=== PATIENT | female | born 1985 | race Caucasian/White ===

== ENCOUNTER 2020-12-07 08:16 | Outpatient (CLI) | payer OTHER, SELFPAY ==
[2020-12-07] VITALS (8 sets, daily range): BP systolic 107–117; BP diastolic 69–80; PULSE 69–81; RESP 16; TEMP 36.6
[2020-12-07 08:47] LABS: Basophils Percent Auto 0.6 % (0.2-1.2); Eosinophils Absolute Auto 0.1 K/mm3 (0-0.3); Eosinophils Percent Auto 0.9 % (0-4.4); Hematocrit 28.4 % (37.0-47.0); Hemoglobin 9.5 g/dL (12.0-15.0); Immature Granulocyte Absolute 0.06 K/mm3 (0.00-0.031); Immature Granulocyte Percent A 0.9 % (0-0.5); Lymphocytes Absolute Auto 1.95 K/mm3 (0.9-3.2); Lymphocytes Percent Auto 28.1 % (18.3-44.2); Mean Corpuscular HGB Conc 33.5 g/dl (32-36); Mean Corpuscular Hemoglobin 28.8 pg (26-34); Mean Corpuscular Volume 86.1 fl (80-100); Mean Platelet Volume 10.6 fl (7.4-10.4); Monocytes Absolute Auto 0.5 K/mm3 (0.1-0.6); Monocytes Percent Auto 6.6 % (2.6-8.5); Neutrophils Absolute Auto 4.4 K/mm3 (1.3-6.7); Neutrophils Percent Auto 62.9 % (45.5-73.1); Platelet Count Result 231 k/mm3 (150-375); Red Cell Distribution Width 13.5 % (11.5-14.5); White Blood Count 6.9 K/mm3 (4.5-10.0)
[2020-12-07 09:08] LABS: Alanine Aminotransferase 9 U/L (4-35); Albumin Level 3.2 g/dL (3.5-5.1); Alkaline Phosphatase 218 U/L (38-126); Anion Gap 7 mmol/L (8-16); Aspartate Amino Transferase 21 U/L (14-36); Bilirubin,Total 0.4 mg/dL (0.2-1.3); Blood Urea Nitrogen 4 mg/dL (7-17); Calcium 8.8 mg/dL (8.4-10.2); Carbon Dioxide 20 mmol/L (22-30); Chloride 110 mmol/L (98-107); Estimated Glomerular Filt Rate > 60; Glucose 73 mg/dL (65-105); Potassium 3.2 mmol/L (3.4-5.0); Sodium 137 mmol/L (137-145); Uric Acid 3.3 mg/dL (2.5-7.5)
[2020-12-07 09:14] LABS: Creatinine Urine 64.7 mg/dL; Total Protein Urine Random 30 mg/dL; Ur Ttl Prot Creatinine Ratio 0.46 mg/mg (0-0.20)
[2020-12-07 09:51] LABS: Add Urine Microscopic? YES; Appearance Urine Clear (Clear); Bacteria Urine 1+ /hpf; Bilirubin Urine Negative (Negative); Blood Urine Negative (Negative); Color Urine Yellow (Yellow); Glucose Urine UA Negative (Negative); Ketones Urine Negative (Negative); Leukocyte Esterase Ur Trace LEU/UL (NEGATIVE); Mucus Urine Rare /lpf; Nitrate Urine Negative (Negative); Protein Urine Negative (Negative); RBC Urine 0-2 /hpf (0-2); Specific Grav Ur 1.009 (1.001-1.035); Squamous Epithelial Cell Urine Few /hpf (Few); Urobilinogen Urine Negative mg/dL (<2.0)
--- NOTE | 2020-12-09 07:58 | PM.OBTRLD ---
OB - Triage/Final Diagnosis Visit Information Date of evaluation: 12/07/20 Reason for evaluation: other (rule out preeclampsia ) Comments/Additional reasons for admission: I have assessed the risk for this patient, Maricruz Munoz, and determined that she would benefit from observation care. Evaluation Laboratory results: Laboratory Tests 12/07/20 12/07/20 12/07/20 08:41 08:41 08:50 WBC 6.9 RBC 3.30 L Hgb 9.5 L Hct 28.4 L MCV 86.1 MCH 28.8 MCHC 33.5 RDW 13.5 Plt Count 231 MPV 10.6 H Immature Gran % (Auto) 0.9 H Neut % (Auto) 62.9 Lymph % (Auto) 28.1 [place] % (Auto) 6.6 Eos % (Auto) 0.9 Baso % (Auto) 0.6 Lymph # (Auto) 1.95 [place] # (Auto) 0.5 Eos # (Auto) 0.1 Baso # (Auto) 0.0 Abs Immat Gran (auto) 0.06 H Absolute Neuts (auto) 4.4 Absolute Nucleated RBC 0.0 Nucleated RBC % 0.0 Sodium 137 Potassium 3.2 L Chloride 110 H Carbon Dioxide 20 L Anion Gap 7 L BUN 4 L Creatinine 0.60 L Estim Creat Clear Calc Not Reportable Estimated GFR > 60 Glucose 73 Uric Acid 3.3 Calcium 8.8 Total Bilirubin 0.4 AST 21 ALT 9 Alkaline Phosphatase 218 H Total Protein 6.0 L Albumin 3.2 L Urine Color Yellow Urine Appearance Clear Urine pH 7.0 Ur Specific [place] 1.009 Urine Protein Negative Urine Glucose (UA) Negative Urine Ketones Negative Ur Blood (Man) Negative Urine Nitrate Negative Urine Bilirubin Negative Urine Urobilinogen Negative Ur Leukocyte Esterase Trace H Urine RBC 0-2 Urine WBC 4-6 H Ur Squamous Epith Cells Few Urine Bacteria 1+ H Urine Mucus Rare U Random Total Protein Urine Creatinine Protein/Creat Ratio 2 12/07/20 08:50 WBC RBC Hgb Hct MCV MCH MCHC RDW Plt Count MPV Immature Gran % (Auto) Neut % (Auto) Lymph % (Auto) [place] % (Auto) Eos % (Auto) Baso % (Auto) Lymph # (Auto) [place] # (Auto) Eos # (Auto) Baso # (Auto) Abs Immat Gran (auto) Absolute Neuts (auto) Absolute Nucleated RBC Nucleated RBC % Sodium Potassium Chloride Carbon Dioxide Anion Gap BUN Creatinine Estim Creat Clear Calc Estimated GFR Glucose Uric Acid Calcium Total Bilirubin AST ALT Alkaline Phosphatase Total Protein Albumin Urine Color Urine Appearance Urine pH Ur Specific [place] Urine Protein Urine Glucose (UA) Urine Ketones Ur Blood (Man) Urine Nitrate Urine Bilirubin Urine Urobilinogen Ur Leukocyte Esterase Urine RBC Urine WBC Ur Squamous Epith Cells Urine Bacteria Urine Mucus U Random Total Protein 30 Urine Creatinine 64.7 Protein/Creat Ratio 2 0.46 H
== END 2020-12-07 09:40 | disposition home or self-care (01) ==
LOC: ANHOBOP 08:20 → ANHOBPP 08:21
PROVIDERS: Student in an Organized Health Care Education/Training Program; Visit Provider Obstetrics & Gynecology
DX: O13.3 Gestational [pregnancy-induced] hypertension without significant proteinuria, third trimester (principal); Z3A.00 Weeks of gestation of pregnancy not specified
CPT/HCPCS: 36415; 59025; 80053; 81001; 82570; 84156; 84550; 85025; 87086; 99199

== ENCOUNTER 2020-12-08 11:49 | Outpatient (NON) | payer OTHER, SELFPAY ==
[2020-12-08 12:04] VITALS: BMI 27.2
[2020-12-08 12:18] LABS: Collection Time Urine 24 HOURS
[2020-12-08 12:23] LABS: Total Volume 24 Hour Urine 2600 ml
[2020-12-08 12:24] LABS: Patient Weight 168 Lbs
[2020-12-08 12:40] LABS: Creatinine Urine 43.4 mg/dL
[2020-12-08 12:41] LABS: Creatinine Clearance Urine 122.1 ml/min (75-125)
[2020-12-08 16:52] LABS: Total Protein Urine 24 Hr 598 mg/24hr (0-149)
== END 2020-12-08 11:50 ==
LOC: ANHOBOP 11:50
PROVIDERS: Visit Provider Student in an Organized Health Care Education/Training Program
DX: O13.3 Gestational [pregnancy-induced] hypertension without significant proteinuria, third trimester (principal); Z3A.38 38 weeks gestation of pregnancy
CPT/HCPCS: 81050; 82575; 84156

== ENCOUNTER 2020-12-10 05:07 | Inpatient (IN) | payer OTHER, SELFPAY ==
[2020-12-10] VITALS (35 sets, daily range): BP systolic 105–138; BP diastolic 56–95; PULSE 61–98; RESP 16; TEMP 36.6–37.5; O2SAT 97–98; BMI 26.3
--- NOTE | 2020-12-10 05:07 | LDADM ---
This patient, Maricruz Munoz, was admitted to Labor/Delivery/Recovery 104 on 12/10/20 at 05:07. Plans for labor, pain management and were discussed with patient. Patient/family oriented to hospital policies and general routines including ID bracelet, bed and alarms, visiting hours, pain management, procedures, bathroom and other care routines, personal items, smoking policy, room service/diet and guest tray routines, security routines, and visiting hours. Patient/Family are encouraged to report perceived risks to care and to ask questions if they do not understand what they are told or what they should do. See OBIX for further documentation.
[2020-12-10 05:41] LABS: Basophils Percent Auto 0.5 % (0.2-1.2); Eosinophils Absolute Auto 0.1 K/mm3 (0-0.3); Hematocrit 30.1 % (37.0-47.0); Hemoglobin 10.1 g/dL (12.0-15.0); Immature Granulocyte Absolute 0.05 K/mm3 (0.00-0.031); Immature Granulocyte Percent A 0.7 % (0-0.5); Lymphocytes Absolute Auto 2.19 K/mm3 (0.9-3.2); Lymphocytes Percent Auto 28.7 % (18.3-44.2); Mean Corpuscular HGB Conc 33.6 g/dl (32-36); Mean Corpuscular Hemoglobin 29.3 pg (26-34); Mean Corpuscular Volume 87.2 fl (80-100); Mean Platelet Volume 10.8 fl (7.4-10.4); Monocytes Absolute Auto 0.5 K/mm3 (0.1-0.6); Monocytes Percent Auto 6.6 % (2.6-8.5); Neutrophils Absolute Auto 4.8 K/mm3 (1.3-6.7); Neutrophils Percent Auto 62.5 % (45.5-73.1); Platelet Count Result 254 k/mm3 (150-375); Red Blood Count 3.45 M/mm3 (4.2-5.4); White Blood Count 7.6 K/mm3 (4.5-10.0)
[2020-12-10] MEDS: LACTATED RINGERS 1,000 ML 125 ML IV CONT ×2 (05:51→10:50)
[2020-12-10] MEDS: OXYTOCIN 30 UNITS/NS 500 ML 30 UNITS/500 ML BAG 125 UNITS IV CONT ×2 (05:51→13:29)
[2020-12-10] MEDS: OXYTOCIN 30 UNITS/NS 500 ML 30 UNITS/500 ML BAG IV CONT (06:00)
--- NOTE | 2020-12-10 06:07 | P.HP_ITS ---
H&P: HPI History of Present Illness Date/Time: 12/10/20 06:07 Chief Complaint: iol Narrative: Maricruz Munoz is a 35 year old female 012 whose last menstrual period was 03/18/2020, EDC 12/23/2020, confirmed b y 9 week ultrasound presents at 38 weeks gestation for induction of labor. She has an elevated protein creatinine ratio with elevated pressures. She also was complaining of headache. Her period has been unremarkable prior Review of Systems Review of Systems: All systems reviewed & are unremarkable except as noted in HPI and below PMFSH Family History Family History Grandparent Hearing loss in Bone cancer Liver cancer Hypertension Sibling Multiple sclerosis Crohn's disease Mother Breast cancer in female Father Hypertension Social History Social History Smoking status: Never smoker Substance use: never Spiritual care concerns: No Meds Home Medications and Allergies Home Medications Medication Instructions Recorded Confirmed Type vit no.[id number] 1 tablet PO DAILY 12/10/20 12/10/20 History [Classic ] Allergies Allergy/AdvReac Type Severity Reaction Status Date / Time No Known Allergies Allergy Unknown Verified 12/02/20 12:42 Vital Signs Vital Signs - 24 hr 12/10/20 05:23 12/10/20 05:46 12/10/20 06:01 Pulse Rate 93 86 84 Blood Pressure 128/81 118/80 117/85 Exam Const: General: no acute distress Eyes: General: appearance normal, both eyes and all related structures Neck: Neck: supple and no JVD Thyroid: thyroid normal Resp: Effort & Inspection: normal respiratory effort Auscultation: clear to auscultation bilaterally Cardio: Rate: regular rate Rhythm: regular rhythm GI: Inspection: non-distended GI Palp: Yes Soft to palpation, No Tenderness to palpation present (GI) and No Guarding due to palpation present (GI) Auscultation: normal bowel sounds : Speculum Exam - Vagina: normal appearance of the vagina Speculum Exam - Cervix: Cervical os closed (cx 2/50/-1. arom clear. fhts reassuring) Skin: General skin exam: no rashes or lesions noted Extrem: General: normal to inspection and no edema Psych: Mental Status: mental status grossly normal Affect: normal affect H&P: Results Labs Labs: Short CBC 12/10/20 Range/Units 05:35 WBC 7.6 (4.5-10.0) K/mm3 Hgb 10.1 L (12.0-15.0) g/dL Hct 30.1 L (37.0-47.0) % Plt Count 254 (150-375) k/mm3 Assessment and Plan Additional Plan impression: 38 week with gestational hypertension Plan: Medical induction of labor. Spontaneous vaginal delivery is expected she is an epidural candidate if she chooses
[2020-12-10 06:34] LABS: Rapid Plasma Reagin Non-Reactive (NonReactive)
--- NOTE | 2020-12-10 10:33 | WPDANESEPP ---
Anes - Eval Pre Procedure Procedure: labor epidural Date/Time: 12/10/20 10:33 Pre Op Diagnosis: Induction Patient Data Age: 35 Gender: F Height: 5 ft 6 in Weight: 74 kg Last Vital Signs Temp 36.7 C 12/10/20 08:00 Pulse 61 12/10/20 10:16 BP 113/70 12/10/20 10:16 Allergies Allergy/AdvReac Type Severity Reaction Status Date / Time No Known Allergies Allergy Unknown Verified 12/10/20 06:26 Home Medications Medication Instructions Recorded Confirmed Type vit no.[id number] 1 tablet PO DAILY 12/10/20 12/10/20 History [Classic ] Laboratory Tests 12/10/20 12/10/20 12/10/20 05:35 05:35 05:35 WBC 7.6 K/mm3 K/mm3 (4.5-10.0) RBC 3.45 M/mm3 L M/mm3 (4.2-5.4) Hgb 10.1 g/dL L g/dL (12.0-15.0) Hct 30.1 % L % (37.0-47.0) MCV 87.2 fl fl (80-100) MCH 29.3 pg pg (26-34) MCHC 33.6 g/dl g/dl (32-36) RDW 14.0 % % (11.5-14.5) Plt Count 254 k/mm3 k/mm3 (150-375) MPV 10.8 fl H fl (7.4-10.4) Immature Gran % (Auto) 0.7 % H % (0-0.5) Neut % (Auto) 62.5 % % (45.5-73.1) Lymph % (Auto) 28.7 % % (18.3-44.2) [place] % (Auto) 6.6 % % (2.6-8.5) Eos % (Auto) 1.0 % % (0-4.4) Baso % (Auto) 0.5 % % (0.2-1.2) Lymph # (Auto) 2.19 K/mm3 K/mm3 (0.9-3.2) [place] # (Auto) 0.5 K/mm3 K/mm3 (0.1-0.6) Eos # (Auto) 0.1 K/mm3 K/mm3 (0-0.3) Baso # (Auto) 0.0 K/mm3 K/mm3 (0.0-0.1) Abs Immat Gran (auto) 0.05 K/mm3 H K/mm3 (0.00-0.031) Absolute Neuts (auto) 4.8 K/mm3 K/mm3 (1.3-6.7) Absolute Nucleated RBC 0.0 K/mm3 K/mm3 (0.0-0.012) Nucleated RBC % 0.0 % % (0.0-0.2) RPR Non-reactive (NonReactive) Blood Type O Positive Antibody Screen Negative Patient hx anesthesia problems: none Family hx anesthesia problems: none PMFSH Family History Family History Grandparent Hearing loss in Bone cancer Liver cancer Hypertension Sibling Multiple sclerosis Crohn's disease Mother Breast cancer in female Father Hypertension Social History Social History Smoking status: Never smoker Substance use: never Spiritual care concerns: No Exam Day of Procedure 12/10/20 10:33 Patient weight: normal Heart: regular rate and rhythm Lungs: clear to auscultation and normal air movement Neurological: alert and oriented
--- NOTE | 2020-12-10 11:42 | P.PNOB_ITS ---
OB - PN: Subj Subjective Date/time seen: 12/10/20 11:42 cx 4cm by rn exam fhts reassuring OB - PN: Obj Data Labs CBC & Chem 7: 12/10/20 05:35 Labs: Laboratory Results - last 24 hr 12/10/20 12/10/20 12/10/20 05:35 05:35 05:35 WBC 7.6 RBC 3.45 L Hgb 10.1 L Hct 30.1 L MCV 87.2 MCH 29.3 MCHC 33.6 RDW 14.0 Plt Count 254 MPV 10.8 H Immature Gran % (Auto) 0.7 H Neut % (Auto) 62.5 Lymph % (Auto) 28.7 [place] % (Auto) 6.6 Eos % (Auto) 1.0 Baso % (Auto) 0.5 Lymph # (Auto) 2.19 [place] # (Auto) 0.5 Eos # (Auto) 0.1 Baso # (Auto) 0.0 Abs Immat Gran (auto) 0.05 H Absolute Neuts (auto) 4.8 Absolute Nucleated RBC 0.0 Nucleated RBC % 0.0 RPR Non-reactive Blood Type O Positive Antibody Screen Negative OB - PN A/P Time Spent With Patient Time: Total time spent is greater than 50% in coordination of care (as documented) at patient's floor/unit and/or counseling patient:
[2020-12-10] MEDS: fentaNYL CITRATE INJ (*CRX) 100 MCG/2 ML VIAL IV PUSH (12:21)
[2020-12-10] MEDS: BENZOCAINE 20% AER SPR (*SP) 56 GM CAN 1 SPRAY TOPICAL (15:11)
[2020-12-10] MEDS: WITCH HAZEL 40 PADS 1 PAD TOPICAL (15:11)
--- NOTE | 2020-12-10 15:25 | PC.NURSE ---
Patient transferred to post room #290 via wheelchair. Support person present. Oriented to unit, room, information board, rooming in, admission packet and security measures. Patient verbalizes understanding.
[2020-12-10] MEDS: IBUPROFEN 600 MG TABLET PO (17:55)
[2020-12-10] MEDS: LANOLIN (LANSINOH) 7.5 GM CREAM 1 APPLIC TOPICAL (17:56)
[2020-12-11] VITALS: BP 100/69; PULSE 62; RESP 16; TEMP 36.6; O2SAT 97
[2020-12-11] MEDS: IBUPROFEN 600 MG TABLET PO ×2 (00:32→10:14)
[2020-12-11 04:00] VITALS: BP 98/60; PULSE 71; RESP 16; TEMP 36.6; O2SAT 97
[2020-12-11 05:11] LABS: Hematocrit 23.6 % (37.0-47.0)
--- NOTE | 2020-12-11 07:41 | PM.DS ---
DS: Admitting Diagnosis Admitting Diagnosis Admitting Diagnosis: term iup gest htn DS: Summary Hospital Course Hospital Course: Patient was admitted for induction of labor secondary to elevated blood pressure. She underwent spontaneous vaginal delivery which was unremarkable. Her hospital course was unremarkable. Her blood pressures remained stable. Time Spent with Patient Time attestation: Total time spent providing and/or coordinating discharge services: Exam Const: General: no acute distress Eyes: General: appearance normal, both eyes and all related structures Neck: Neck: supple and no JVD Thyroid: thyroid normal Resp: Effort & Inspection: normal respiratory effort Auscultation: clear to auscultation bilaterally Cardio: Rate: regular rate Rhythm: regular rhythm GI: Inspection: non-distended GI Palp: Yes Soft to palpation, No Tenderness to palpation present (GI) and No Guarding due to palpation present (GI) Auscultation: normal bowel sounds : General: Yes bladder normal to palpation External Female Exam: normal external appearance Speculum Exam - Vagina: normal vaginal discharge and No vaginal bleeding Speculum Exam - Cervix: nontender Bimanual exam- vagina & uterus: bladder normal to palpation and No Cervical tenderness present OB/external & speculum: No vaginal bleeding Skin: General skin exam: no rashes or lesions noted Extrem: General: normal to inspection and no edema Psych: Mental Status: mental status grossly normal Affect: normal affect DS: Data Data Completed and Pending Labs on day of discharge: Labs from last 24 hours 12/11/20 12/10/20 03:52 05:35 Hgb 8.0 L Hct 23.6 L Blood Type O Positive Antibody Screen Negative Discharge Plan Discharge Attending physician on discharge: Kayode Brown Discharging Clinician: Kayode Brown Patient Disposition: Home, Self-Care Activity: no straining and pelvic rest Diet: heart healthy Wound Care Instructions: follow printed instructions Patient Instructions: Antibiotic Form Stand Alone Forms: General Discharge Information Follow-up/Referrals: Kayode Brown MD [Physician] - Discharge Medications: Continued Classic 28 mg iron- 800 mcg Tablet 1 tablet PO DAILY RF: 0 Date of admission: 12/10/20 05:07 Primary Care Provider: PHYSICIAN,DIALYSIS CLINICAL MANAGER Admitting Provider: Kayode Brown Attending physician on admission: Kayode Brown Condition: Stable
--- NOTE | 2020-12-11 07:45 | PM.OBPNVD ---
OB - PN: Subj Subjective Date/time seen: 12/11/20 07:45 OB - PN: Obj Data Labs CBC & Chem 7: 12/11/20 03:52 Labs: Laboratory Results - last 24 hr 12/10/20 12/11/20 05:35 03:52 Hgb 8.0 L Hct 23.6 L Blood Type O Positive Antibody Screen Negative OB - PN A/P Plan day: 1 Plan: routine care, discharge home and follow up 6 weeks Time Spent With Patient Time: Total time spent is greater than 50% in coordination of care (as documented) at patient's floor/unit and/or counseling patient: Time with patient: less than 15 minutes Review of Systems Review of Systems: All systems reviewed & are unremarkable except as noted in HPI and below Exam Const: General: no acute distress Eyes: General: appearance normal, both eyes and all related structures Neck: Neck: supple and no JVD Thyroid: thyroid normal Resp: Effort & Inspection: normal respiratory effort Auscultation: clear to auscultation bilaterally Cardio: Rate: regular rate Rhythm: regular rhythm GI: Inspection: non-distended GI Palp: Yes Soft to palpation, No Tenderness to palpation present (GI) and No Guarding due to palpation present (GI) Auscultation: normal bowel sounds : General: Yes bladder normal to palpation External Female Exam: normal external appearance Speculum Exam - Vagina: normal vaginal discharge and No vaginal bleeding Speculum Exam - Cervix: nontender Bimanual exam- vagina & uterus: bladder normal to palpation and No Cervical tenderness present OB/external & speculum: No vaginal bleeding Skin: General skin exam: no rashes or lesions noted Extrem: General: normal to inspection and no edema Psych: Mental Status: mental status grossly normal Affect: normal affect
[2020-12-11 07:55] VITALS: BP 116/68; PULSE 74; RESP 18; TEMP 36.8; O2SAT 99
--- NOTE | 2020-12-11 08:50 | PC.NURSE ---
Mother called out for assist with feeding. Consulted with patient, mother nipple discomfort with latch during most of the feeding. Both nipples are reddened, nipple care reviewed and lanolin provided. Mother reports she has breastfed two other children. Reviewed infant feeding cues, frequencies, duration of feedings, feeding elimination flow sheet, and signs of adequate intake. Demonstrated stimulation techniques to wake infant for feeding. Assisted with to breast. Reviewed positioning/alignment in cross cradle, holding breast in U hold and guided asymmetrical latch on. Infant was able to latch correctly within a few attempts. nursed eagerly, with steady draws and frequent swallowing noted. Reviewed signs of a correct latch, effective nursing and suck swallow ratio. was able to maintain latch. Mother reported tenderness at times, infant had slipped to shallow latch. Demonstrated how to adjust latch more deeply while feeding. Mother quickly reports she can feel is latched more deeply and has minimal tenderness. Suggested to stimulate infant while feeding to keep awake and nursing effectively for increased stimulation and increased intake. Instructed mother to call out for RN assistance if she is unable to latch infant for feeding or she has discomfort with nursing. Instructed feeding should be initiated three hours from start of last feeding or if feeding cues are noted before. Mother voiced understanding of information shared. Mother wishes for 24 hour discharge. Mother is feeding as required and waking to feed if needed. Infant has had several feedings as required since , and is currently meeting outcomes for weight, output, jaundice and feeding frequencies. Mother states she feels confident to continue effective at home. Reviewed transition to breast milk, signs of adequate intake, and engorgement/relief. Instructed to call ICP if intake/output less than required. Reviewed regular medications mother is taking. Information provided per Berenice. Reviewed community resources on the [facility] website and in the [employer] guide. Information on outpatient services provided. Mother has no further questions at this time.
[2020-12-11 10:00] VITALS: PULSE 74; RESP 18; O2SAT 99
[2020-12-11] MEDS: ACETAMINOPHEN 325 MG TABLET 650 MG PO (10:04)
[2020-12-11] MEDS: DOCUSATE SODIUM 100 MG CAPSULE PO (10:04)
[2020-12-11] MEDS: MULTIVIT/MIN/PREN/FOL AC/IRON TABLET 1 TAB PO (10:15)
[2020-12-11] MEDS: POLYSACCHARIDE IRON COMPLEX 150 MG CAPSULE PO (10:15)
[2020-12-11] MEDS: LANOLIN (LANSINOH) 7.5 GM CREAM 1 APPLIC TOPICAL (10:17)
--- NOTE | 2020-12-11 11:51 | PC.NURSE ---
Addendum entered by Deangelo Erwin RN 12/11/20 11:52: actual time is 0800 Original Note: PT introductions made and plan of care discussed per post , pain management, breast feeding daily care activities and pending discharge to home PT verbalized understanding of such care.
[2020-12-11 12:15] VITALS: BP 122/75; PULSE 77; RESP 18; TEMP 37.2; O2SAT 97
--- NOTE | 2020-12-11 13:15 | PC.NURSE ---
PT received discharge instructions per protocol verbally and without any barriers to understanding. PT verbalized understanding of such instructions.
--- NOTE | 2020-12-11 13:40 | PC.NURSE ---
Pt discharged to home ambulatory accompanied by spouse and to waiting car. Follow up appts confirmed
[2020-12-12 10:38] VITALS: BP 97/74; PULSE 62; RESP 20; TEMP 37.1; O2SAT 100
--- NOTE | 2020-12-12 10:38 | PM.OBPRVD ---
OB - Delivery Note Procedure events: Pre-Eclampsia Induction method: AROM Delivery augmentation: pitocin Delivery monitor: external FHT Route of delivery: Episiotomy description: None Laceration Description: Perineal - 2nd Degree Delivery repair: vicryl Specimen: No Quantitative Blood Loss (ml): 158 Anesthesia type: Local Disposition: floor [place] Baby Weeks of gestation at delivery: 38 gender: Female presentation: vertex position: Right Occiput Anterior Placenta delivery description: Spontaneous cord vessel description: 3 Vessels
== END 2020-12-11 13:40 | disposition home or self-care (01) | DRG 807 ==
LOC: ANHLDR 05:11 → ANHOB2 15:37
PROVIDERS: Admitting Provider Obstetrics & Gynecology; Visit Provider Obstetrics & Gynecology
DX: O13.4 Gestational [pregnancy-induced] hypertension without significant proteinuria, complicating childbirth (principal); Z37.0 Single live birth; O70.1 Second degree perineal laceration during delivery; O69.81X0 Labor and delivery complicated by cord around neck, without compression, not applicable or unspecified; O76 Abnormality in fetal heart rate and rhythm complicating labor and delivery; Z3A.38 38 weeks gestation of pregnancy
CPT/HCPCS: 36415; 85014; 85018; 85025; 86592; 86850; 86900; 86901; A9270; J2590; J2795; J3010; J7120

== ENCOUNTER 2023-06-26 11:09 | Emergency (ER) | payer OTHER, SELFPAY ==
--- NOTE | 2023-06-26 11:14 | ED.URI ---
HPI - URI/Sore Throat General Chief Complaint: Upper Respiratory Infection Stated Complaint: sore throat Time Seen by Provider: 06/26/23 11:14 Source: patient Mode of arrival: ambulatory Limitations: no limitations History of Present Illness HPI Narrative: Serjio is a 38-year-old female patient presenting to clinic today with complaints of a sore throat 2-3 days. She reports no other symptoms. No known fever or chills. States her 3 children also are reporting sore throats and are being evaluated in the clinic today. She would like them to be checked for strep. MD elicited complaint: sore throat Related Data Home Medications Medication Instructions Recorded Confirmed No Home Medications 06/26/23 06/26/23 Allergies Allergy/AdvReac Type Severity Reaction Status Date / Time No Known Allergies Allergy Unknown Verified 06/26/23 11:40 Review of Systems Review of Systems: Pertinent positives per HPI. Patient denies any fever, chills, rash, headache, visual changes, dizziness, cough, shortness of breath, chest pain, palpitations, nausea, vomiting, diarrhea, constipation, abdominal pain, or any urinary issues. PMFSH Family History Family History Grandparent Hearing loss in Bone cancer Liver cancer Hypertension Sibling Multiple sclerosis Crohn's disease Mother Breast cancer in female Father Hypertension Social History Social History Smoking status: Never smoker Substance use: never Spiritual care concerns: No Comments At the time of my signature, I reviewed and agree with the nursing past medical, surgical, social, and family history. There is no relevant family history pertinent to the patient complaint. Exam Narrative: General: Well-developed, well nourished, in no apparent distress Head: Normocephalic, atraumatic Eyes: Pupils equally round and reactive to light bilaterally, EOM intact, sclera and conjunctive clear, no discharge, lids normal Ears: TMs intact and clear, ear canals clear, no drainage, grossly hearing normal. Nose: Nares patent, no discharge, no inflammation, no sinus tenderness. Mouth: Oral pharynx mild red without lesions or masses, good dentition, MMM. Neck: Supple, trachea midline, no enlargement of anterior or posterior cervical nodes, no thyroid masses or goiter palpable. Cardio: Regular rate and rhythm, s1 and s2 normal, no murmur appreciated. Resp: Clear to auscultation bilaterally, no rhonchi, rales, wheezing or rubs Course Course Emergency Course: Portions of this record may have been created with voice recognition software. Level of Care: Express Care Visit Vital Signs Vital signs: Vital Signs Temperature 36.7 C 06/26/23 11:29 Pulse Rate 71 06/26/23 11:29 Respiratory Rate 18 06/26/23 11:29 Blood Pressure 117/74 06/26/23 11:29 Pulse Oximetry 98 06/26/23 11:29 Oxygen Delivery Room Air 06/26/23 11:29 Temperature 36.7 C 06/26/23 11:29 Pulse Rate 71 06/26/23 11:29 Respiratory Rate 18 06/26/23 11:29 Blood Pressure 117/74 06/26/23 11:29 Pulse Oximetry 98 06/26/23 11:29 Oxygen Delivery Room Air 06/26/23 11:29 Vital signs reviewed MDM - URI/Sore Throat MDM Narrative Medical decision making narrative: At the time of visit patient is resting comfortably on the exam table. All her children were negative for strep in the clinic today so mother opted not to be swab. I suspect she has viral pharyngitis. Supportive measures were discussed with mother and she voiced understanding of the discharge instructions agrees to treatment plan. Differential Diagnosis Differential diagnosis: Likely upper respiratory infection, otitis media, sinusitis, viral infection, bronchitis, influenza, pharyngitis and other (COVID) Discharge Plan Discharge Clinical Impression: Acute viral pharyngitis
[2023-06-26 11:29] VITALS: BP 117/74; PULSE 71; RESP 18; TEMP 36.7; O2SAT 98
== END 2023-06-26 12:00 | disposition home or self-care (01) ==
PROVIDERS: Emergency Provider Nurse Practitioner Family
DX: J02.9 Acute pharyngitis, unspecified (principal)
CPT/HCPCS: 99211; G0463

== ENCOUNTER 2025-05-11 17:22 | Emergency (ER) | payer OTHER, SELFPAY ==
--- OUTSIDE RECORDS SUMMARY | 2025-05-11 17:36 | XMS_ITS | Referral Summary ---
Author Organization [facility] Address [address] [place] [address] Care Team Providers Care Cardiology Consultants Name Role Phone Dorina Mack DO Unavailable [phone] Maegan Hay MD Unavailable [phone] Maegan Hay MD Primary Care Provider [phone] Allergies No known active allergies Medications multivitamin capsule Take 1 capsule by mouth daily ELVA DHA VITAMINS Active drospirenone-et hinyl estradioL (STEPHANIE PATIÑO) 3-0.02 mg per tablet Take 1 tablet by mouth daily Active Active Problems Problem Noted Date Diagnosed Date Abnormal mammogram 12/27/2024 Family history of breast cancer 01/27/2023 Screening mammogram for breast cancer 01/27/2023 Encounter for nonprocreative genetic counseling and testing 01/27/2023 Breast cancer screening, high risk patient 01/27 Closed fracture of neck of left radius with rout ine healing 01/13/2023 01/27/2023 Numbness and tingling of both feet 09/03/2021 01/27/2023 Weakness of both hands 09/03/2021 Social History Tobacco Use Types Packs/Day Years Used Date Smoking Tobacco: Never Passive Smoke Exposure: Never Smokeless Tobacco: Never Tobacco Cessation:Counseling Given: Not Answered AUDIT-C Answer Date Recorded Frequency of Alcohol Consumption Not on file 12/27/2024 Q2: How many drinks containi ng alcohol do you have on a typical day when you are drinking? Patient does not drink Frequency of Binge Drinking Not on file 12/09 Comments No Sex and Gender Information Value Date Recorded Sex Assigned at Not on file Legal Sex Female 11:56 AM CDT Gender Identity Not on file Sexual Orientation Not on file Last Filed Vital Signs Vital Sign Reading Time Taken Comments Blood Pressure 106/69 12/27/2024 9:36 AM CDT Pulse 77 12/27/2024 9:36 AM CDT Temperature 37.2 C (99 F) 12/27/2024 9:36 AM CDT Respiratory Rate 18 12/27/2024 9:36 AM CDT Oxygen Saturation 98% 12/27/2024 9:36 AM CDT Inhaled Oxygen Concentration - - Weight 71.8 kg (158 lb 3.2 oz) 12/27/2024 9:36 A M CDT Height 168.9 cm (5' 6.5) 12/27/2024 9:36 AM CDT Body Mass Index 25.15 12/27/2024 9:36 AM CDT Plan of Treatment Not on file Procedures Procedure Name Priority Date/Time Associated Diagnosis Comments DIAGNOSTIC MAMMOGRAM BILATERAL W OTIS Schedule Routine, Read Routine (OP Routine) 05/30/2024 11:19 AM CDT Category 3 mammography result with short follow-up interval suggested for probably benign finding from Last 3 Months or Most Recently Relevant to Health Maintenance Results * Diagnostic Mammogram Bilateral W Otis (05/30/2024 11:19 AM CDT) Anatomical Region Laterality Modality Breast Bilateral Mammography 05/31/2024 4:12 PM CDT Narrative 05/31/2024 4:20 PM CDT EXAM DESCRIPTION: DIAGNOSTIC MAMMOGRAM BILATERAL W OTIS REASON FOR STUDY: 38-year-old female presents for follow-up of a probably benign finding in the right breast, which was occult on prior ultrasound. Annual left screening mammogram. TECHNIQUE: CC and MLO views of the bilateral breasts were obtained with digital technique using breast tomosynthesis with C view. COMPARISON: MRI breast 11/11/2023. Diagnostic mammogram and breast ultrasound 05/31/2023. Screening mammogram 05/07/2023. FINDINGS: DENSITY: The breasts are heterogeneously dense, which may obscure small masses. MAMMOGRAM FINDINGS: The subtle probably benign low-density asymmetry in the slightly upper right breast, posterior depth, has not suspiciously changed. As previously, there are no associated suspicious microcalcifications or architectural distortion. This asymmetry was occult on prior ultrasound and appears slightly less conspicuous on today's mammogram. No correlate was identified on the previous breast MRI. This asymmetry remains probably benign and favored to represent a lobule of normal dense fibroglandular tissue. IMPRESSION: 1. The probably benign asymmetry in the posterior, slightly upper right breast on the MLO view has not suspiciously changed. This was occult on both prior ultrasound and MRI and is favored to represent a lobule of normal dense fibroglandular tissue. Follow-up diagnostic mammogram of the right breast in 1 year is recommended to assess for continued stability. 2. No mammographic evidence of malignancy in the left breast. Recommend screening mammography of the left breast in 1 year. BIRADS: 3 - Probably benign finding, short-interval follow-up suggested. The patient has been or will be notified of these findings and recommendations. THIS IS AN ELECTRONICALLY VERIFIED FINAL REPORT 05/31/2024 4:20 PM - Electronically signed by Festus Mejía M.D. MD: Report ID: [id number] Reading Location: [facility] Maegan Hay MD IMG MAMMO PROCEDURES Final Result from Last 3 Months or Most Recently Relevant to Health Maintenance Insurance [facility] [id number] [facility] [id number] Member Subscriber Plan / Payer (Ef fective 2021-Present) Name:Maricruz Munoz Member ID:[id number] Relation to Subscriber:Self Name:Maricruz Munoz Subscriber ID:[id number] Payer ID:[id number] Type:[employer] HMO/PPO Address: [employer] CLAIMS [address] [place] [id number] Care Teams Cardiology Consultants Relationship Specialty Start Date End Date Maegan Hay MD [address] [facility] [address] [place] [address] PCP - General Medical Oncology 05/30/24 Dorina Mack DO [address] [facility] [address] [place] [address] Referring Physician Gynecologic Oncology 12/24/22 Maegan Hay MD [address] [facility] [address] IM MEDICAL ONCOLOGY, [facility] [address] [place] [address] Surgeon Breast Surgery 12/24/22
--- OUTSIDE RECORDS SUMMARY | 2025-05-11 17:36 | XMS_ITS | Clinical Summary ---
Author Organization [facility] Address [address] [place] [address] Care Team Providers Care Criminal Legal Assistant Name Role Phone Dorina Mack DO Unavailable Maegan Hay MD Unavailable [phone] Maegan Hay MD Primary Care Provider Allergies No known active allergies Medications multivitamin [...] 09/03/2021 01/27/2023 Weakness of both hands 09/03/2021 3 Family History Medical History Relation Name Comments Crohn's disease Brother 1 sandra Multiple sclerosis Brother 2 emmanuel Hypertension Father Parkinsonism Maternal Grandfather Breast cancer Mother Non-Hodgkin's Lymphoma Paternal Grandfather Breast cancer Paternal Grandmother Bipolar disorder Sister Relation Name Status Comments Brother 1 sandra Alive Brother 2 emmanuel Alive Father Alive Maternal Grandfather Maternal Grandmother Alive Mother Alive Paternal Grandfather Paternal Grandmother Sister Alive Social History Tobacco Use Types Packs/Day Years [...] on file Sexual Orientation Not on file Obstetrics History Para Term AB IAB SAB Ectopic Multiple Livin g Live Births 3 3 3 Date Outcome GA Total Labor Labor/2nd/3rd Weight Sex Type Anes PTL Mely A1 A5 Name Clin Term Term Term Last Filed Vital Signs Vital Sign Reading [...] 12/27/2024 9:36 AM CDT Plan of Treatment Health Maintenance Due Date Last Done Comments Cervical Cancer Screening 1984 Depression Screening 1984 Hepatitis C Screening 1984 Varicella Vaccines (1 of 2 - 13+ 2-dose series) 1997 Regular Well Visit/Exam 18-64 2002 HPV Vaccines (1 - 3-dose SCDM series) 2011 Covid-19 Vaccine ( season) 2024 01/28/2022 Breast Cancer Screening-Mammogram 05/30/2025 05/30/2024, 05/07/2023 Influenza Vaccine (#1) 2025 , 07/13/2019, 07/07/2018, Additional history exists DTaP/Tdap/Td Vaccine (9 - Td or Tdap) 10/24/2030 10/24/2020, 05/28/2017, 07/08/2015, Additional history exists Hepatitis B Screening Completed 08/28/1998 , 02/20/1998, 01/16/1998 Pneumococcal vaccine <65 Aged Out No longer eligible based on patient's age to complete this topic Procedures Procedure Name Priority Date/Time Associated Diagnosis [...] by Festus Mejía M.D. MD: Report ID: [id number] Reading Location: [facility] Maegan Hay MD IMG MAMMO PROCEDURES Final Result from Last 3 Months or Most Recently Relevant to Health Maintenance Insurance [facility] [id number] [facility] [id number] Care Teams Criminal Legal Assistant Relationship Specialty Start Date End Date Maegan Hay MD [address] [facility] [address] [place] [address] PCP - General Medical Oncology 05/30/24 Dorina Mack DO [address] [facility] [address] [place] [address] Referring Physician Gynecologic Oncology 12/24/22 Maegan Hay MD [address] [facility], [facility] [address] [place] [address] Surgeon Breast Surgery 12/24/22
--- OUTSIDE RECORDS SUMMARY | 2025-05-11 17:36 | XMS_ITS | Clinical Summary ---
Author Organization [facility] Address [address] [place] [address] Phone Care Team Providers Care Electrical Helper Name Role Phone Unavailable Primary Care Provider Unavailabl e Social History Tobacco Use Types Packs/Day Years Used Date Smoking Tobacco: Never Assessed Comments Unknown Sex and Gender Information Value Date Recorded Sex Assigned at Not on file Legal Sex Female 6:28 AM CDT Gender Identity Not on file Sexual Orientation Not on file Plan of Treatment Not on file
--- OUTSIDE RECORDS SUMMARY | 2025-05-11 17:36 | XMS_ITS | Clinical Summary ---
Author Organization [facility] Address [facility] [place] [address] Care Team Providers Care Wood Drilling Machine Operator Name Role Phone Unavailable Primary Care Provider Unavailabl e Allergies No known active allergies Medications LORazepam 1 MG tabletIndicatio ns:Demyelinatin g disease (CMS/HCC) Take 1 tablet (1 mg total) by mouth once as needed for Anxiety. Take 30 minutes prior to MRI 1 tablet 04/20/2022 Active drospirenone-et hinyl estradiol 3-0.02 MG Tab Take 1 tablet by mouth daily. 05/13/2022 Active Active Problems Problem Noted Date Diagnosed Date Numbness and tingling of both feet 09/03/2021 Weakness of both hands 09/03/2021 Family history of multiple sclerosis 09/03/2021 Family history of breast cancer in mother 2020 Menorrhagia with irregular cycle 09/03/2021 Immunizations Immunization Administration Dates Next Due Dtp (Generic) 03/09/1990, 6,1984,1984,1983 Hepatitis B Pediatric 08/28/1998,02/20/1998,04/0 05/1998 Influenza (Generic) 07/25/2015,07/13/2013 Influenza Adult (Generic) 07/22/2020,07/13/2019, 07/07/2018 MMR (MMRII) 02/23/1992,09/15/1985 Meningococcal (Menomune) 05/24/2003 Polio Opv (Generic) 03/09/1990,12/15/1985,1984,1984 Td (TDVAX) 08/28/1998 Tdap (Generic) 10/24/2020,05/28/2017,07/08/2015 Family History Medical History Relation Comments Multiple Sclerosis Brother Hypertension Father Early Hearing Loss Maternal Grandfather Stroke Maternal Grandfather Hypertension Maternal Grandmother Cancer Mother Breast Cancer Paternal Grandfather Liver, Bone Heart Disease Paternal Grandmother Hypertension Paternal Grandmother Mental Health Sister Bipolar Disorder Relation Status Comments Brother Father Maternal Grandfather Maternal Grandmother Mother Paternal Grandfather Paternal Grandmother Sister Social History Tobacco Use Types Packs/Day Years Used Date Smoking Tobacco: Never Smokeless Tobacco: Never Tobacco Cessation:Counseling Given: Yes Comments:The provider can provide you with more information about quitting. Alcohol Use Standard Drinks/Week Comments Not Currently 0 (1 standard drink = 0.6 oz pur e alcohol) PHQ-2 Answer Date Recorded PHQ-2 Score - If the patient scores above 3, please move on to questions 3-9 0 09/03/2021 Comments No Sex and Gender Information Value Date Recorded Sex Assigned at Not on file Legal Sex Female 10:49 AM LITERACY CONSULTANT Gender Identity Not on file Sexual Orientation Not on file Last Filed Vital Signs Vital Sign Reading Time Taken Comments Blood Pressure 103/71 06/18/2022 11:05 AM CDT Pulse 74 06/18/2022 11:05 AM CDT Temperature 37.3 C (99.1 F) 06/18/2022 11:05 AM CDT Respiratory Rate 18 09/03/2021 11:19 AM LITERACY CONSULTANT Oxygen Saturation 98% 06/18/2022 11:05 AM CDT Inhaled Oxygen Concentration - - Weight 68.6 kg (151 lb 3.2 oz) 06/18/2022 11:05 AM CDT Height 167.6 cm (5' 6) 06/18/2022 11:05 AM CDT Body Mass Index 24.4 06/18/2022 11:05 AM CDT Plan of Treatment Health Maintenance Due Date Last Done Comments Cervical Cancer Screening Pap Smear (Age 30 to 64) Every 3 Years 1984 HPV Vaccines (1 - 3-dose SCDM series) 2011 Cervical Cancer Screening Pap with HPV Testing (Age 30 to 64) Every 5 Years 2014 Cervical Cancer Screening with HPV 2014 Annual Physical 09/03/2022 09/03/2021 COVID-19 Vaccine (2023-25 season) 2024 Mammogram Screening 2024 DTaP, Tdap and Td Vaccines (9 - Td or Tdap) 10/24/2030 10/24/2020, 05/28/2017, 07/08/2015, Additional history exists Hepatitis B Vaccines Completed 08/28/1998, 02/20/1998, 01/16/1998 Meningococcal Vaccine Aged Out 05/24/2003 No darlene ward eligible based on patient's age to complete this topic Hepatitis C Completed 09/15/2021 Meningococcal B Vaccine Aged Out No l onger eligible based on patient's age to complete this topic Pneumococcal Vaccine: Pediatrics (0 to 5 Years) and At-Risk Patients (6 to 49 Years) Aged Out No longer eligible based on patient's age to complete this topic RSV Immunizations Under 20 Months Aged Out No longer eligible based on patient's age to complete this topic Procedures Procedure Name Priority Date/Time Associated Diagnosis Comments HEPATITIS C ANTIBODY Routine 09/15/2021 7:29 AM LITERACY CONSULTANT Need for hepatitis C screening test from Last 3 Months or Most Recently Relevant to Health Maintenance Results * HEPATITIS C ANTIBODY (09/15/2021 7:29 AM LITERACY CONSULTANT) HEPATITIS C AB NON-REACTI VE NON-REACT SARBJIT 09/15/2021 7:47 PM LITERACY CONSULTANT [facility] Comment: ANTIBODIES TO HCV NOT DETECTED. DOES NOT EXCLUDE THE POSSIBILITY OF EXPOSURE TO HCV. 09/15/2021 7:29 AM LITERACY CONSULTANT us Mary Ballard NP LABORATORY Final Res ult [facility] [address] [place] [address], [id number] from Last 3 Months or Most Recently Relevant to Health Maintenance Insurance [employer] [facility]
--- OUTSIDE RECORDS SUMMARY | 2025-05-11 17:36 | XMS_ITS | Clinical Summary ---
Author Organization [facility] Address [address] [place] [address] Care Team Providers Care Green Chain Marker Name Role Phone Unavailable Primary Care Provider Unavailabl e Source Comments [facility],non-owned Affiliates and Associated Physician Practices is amultiple site organization consisting of ambulatory clinics and hospital sitesin [place], [place], [place] and [place]. This disclosure is being madepursuant to the Care Everywhere program and may not contain all information available regarding this patient. Last updated 18.[facility] [employer] Allergies No known active allergies Immunizations Immunization Administration Dates Next Due INFLUENZA VACCINE, QUADR. (F LUZONE; FLULAVAL; FLUARIX; AFLURIA QUADRIVALENT; 6MO+), 0.5 ML (IIV4) 07/22/2020 TDAP (7yrs+) 10/24/2020 Social History Tobacco Use Types Packs/Day Years Used Date Smoking Tobacco: Never Assessed Comments Unknown Sex and Gender Information Value Date Recorded Sex Assigned at Not on file Legal Sex Female 11:58 AM PUBLIC POLICY MANAGER Gender Identity Not on file Sexual Orientation Not on file Plan of Treatment Health Maintenance Due Date Last Done Comments LIPID TESTING 1984 MAMMOGRAM 1984 HIV SCREENING 1999 HEPATITIS C SCREENING 06/11/2002 HEPATITIS B VACCINE (1 of 3 - 19+ 3-dose series) 2003 HPV VACCINE (1 - 3-dose SCDM series) 2011 COVID-19 VACCINE (2023-2 5 season) 2024 DEPRESSION SCREENING 10/11/2024 INFLUENZA VACCINE (#1) 2025 07/22/2020 DTAP/TDAP/TD VACCINES (2 - T d or Tdap) 10/24/2030 10/24/2020 ZOSTER VACCINE (1 of 2) 2034 HIB VACCINE Aged Out No longer eligi ble based on patient's age to complete this topic MENINGOCOCCAL (Group B) VACC INE SHARED DECISION-MAKING Aged Out No longer eligibl e based on patient's age to complete this topic MENINGOCOCCAL GROUPS A/C/Y/W VACCINE Aged Out No longer eligible b ased on patient's age to complete this topic PNEUMOCOCCAL VACCINE Aged Out No long er eligible based on patient's age to complete this topic Insurance [employer]
[2025-05-11 17:44] VITALS: BP 111/75; PULSE 77; RESP 14; TEMP 36.9; O2SAT 100
--- NOTE | 2025-05-11 17:48 | ED.WOUNDLAC ---
HPI - Wound/Laceration General Chief Complaint: Wound/Laceration Stated Complaint: cat bite Time Seen by Provider: 05/11/25 17:48 Source: patient Mode of arrival: ambulatory Limitations: no limitations History of Present Illness HPI narrative: 39-year-old female presents with cat bite to left thumb. Was bit by cat yesterday. Cat is an unvaccinated farm cat. ROM and distal NV intact. All systems reviewed and negative except as noted above. Related Data Home Medications ?Medication ?Instructions ?Recorded ?Confirmed ?Last Taken ?Type drospirenone 3 mg-ethinyl tablet 05/11/25 Unknown History estradiol 0.02 mg tablet Allergies Allergy/AdvReac Type Severity Reaction Status Date / Time No Known Allergies All[facility] Unknown [facility]11[facility]25 [facility] Family History Family History Grandparent Hearing loss in Bone cancer Liver cancer Hypertension Sibling Multiple sclerosis Crohn's disease Mother Breast cancer in female Father Hypertension Social History Social History Smoking status: Never smoker Substance use: never Spiritual care concerns: No Comments At time of signature, agree with nursing past medical, surgical, social and family history. There is no relevant family history pertinent to the presenting complaint. Exam Narrative: GENERAL: This is a well-nourished, well-developed patient, in no apparent distress. HEAD: normocephalic, atraumatic. EYES: PERRL. Sclera clear/white. Vision is grossly intact. EARS: External ears normal NOSE: External nose normal NECK: Neck supple, non-tender without lymphadenopathy, masses or thyromegaly. CARDIOVASCULAR: Regular rate and rhythm without murmurs, gallops, or rubs. RESPIRATORY: Clear to auscultation. Breath sounds equal bilaterally. No wheezes, rales, or rhonchi. SKIN: warm, Dry, intact with no suspicious lesions or rash, good texture and turgor. NEURO: awake, alert, and oriented to person, place and time. There were no obvious focal neurologic abnormalities. EXTREMITIES: Several puncture wounds to left thumb. No active bleeding. Left thumb is erythematous with mild swelling. No drainage. No fluctuance concerning for abscess. Range of motion and distal neurovascularly intact. Course Course Level of Care: Express Care Visit Vital Signs Vital signs: Vital Signs Temperature 36.9 C 05/11/25 17:44 Pulse Rate 77 05/11/25 17:44 Respiratory Rate 14 05/11/25 17:44 Blood Pressure 111/75 05/11/25 17:44 Pulse Oximetry 100 05/11/25 17:44 Oxygen Delivery Room Air 05/11/25 17:44 Temperature 36.9 C 05/11/25 17:44 Pulse Rate 77 05/11/25 17:44 Respiratory Rate 14 05/11/25 17:44 Blood Pressure 111/75 05/11/25 17:44 Pulse Oximetry 100 05/11/25 17:44 Oxygen Delivery Room Air 05/11/25 17:44 Reviewed MDM - Wound/Laceration MDM Narrative Medical decision making narrative: will prescribe Augmentin to treat cat bite infection. Patient is well-appearing, nontoxic. Tetanus is not up to date. Patient was offered a Tdap today, she did not feel was necessary. Patient educated on tetanus infection. Differential Diagnosis Differential diagnosis: Likely laceration, abscess, abrasion and avulsion of skin Discharge Plan Discharge Clinical Impression: Cat bite of left thumb with infection Patient Disposition: Home Condition: Stable Instructions: Antibiotic Form, Animal Bite (ED) Additional Instructions: Take antibiotic as prescribed until gone. May taking [id number] medication to treat pain such as Tylenol or ibuprofen. Take as directed on packaging. Follow-up with your primary care physician if not improving. For any worsening of symptoms go to the ER. Patient Language: Italian Prescriptions: New amoxicillin-pot clavulanate 875-125 mg tablet 1 tablet PO Q12H 10 Days Qty: 20 0RF No Action drospirenone-ethinyl estradiol 3-0.02 mg tablet Follow-up/Referrals: PHYSICIAN,TELECOMMUNICATIONS FACILITY EXAMINER [Primary Care Provider] - Time of Disposition: 17:53
== END 2025-05-11 17:57 | disposition home or self-care (01) ==
PROVIDERS: Emergency Provider Nurse Practitioner Family
DX: S61.032A Puncture wound without foreign body of left thumb without damage to nail, initial encounter (principal); L08.9 Local infection of the skin and subcutaneous tissue, unspecified; W55.01XA Bitten by cat, initial encounter
CPT/HCPCS: 99213; G0463